=== PATIENT | female | born 1970 | race Two or more races ===

== ENCOUNTER 2018-11-29 01:57 | Emergency (ER) | payer OTHER, MEDICAID ==
[~2018-11-29] VITALS: Ht 172.7 cm; Wt 127.0 kg
[2018-11-29] MEDS ORDERED: SODIUM CHLORIDE 0.9% 1,000 ML IV ONE (04:16)
[2018-11-29] MEDS ORDERED: FAMOTIDINE 20MG/2ML VIAL IV STA (04:16)
[2018-11-29] MEDS ORDERED: ONDANSETRON HCL 4MG/2ML INJ IV STA (04:16)
[2018-11-29 05:02] LABS: BASOPHILS % 0.8 % (0.0-2.0); EOSINOPHILS % 1.4 % (0.0-5.0); HEMATOCRIT. 27.8 % (36.0-48.0); HEMOGLOBIN. 8.3 g/dL (12.0-16.0); LYMPHOCYTES % 17.3 % (20.0-50.0); MEAN CORPUSCULAR HEMOGLOBIN 19.7 pg (28.0-32.0); MEAN CORPUSCULAR VOLUME 65.8 fL (81.0-99.0); MEAN PLATELET VOLUME 7.4 fl (7.4-10.4); MONOCYTES % 6.3 % (2.0-8.0); NEUTROPHILS % 74.2 % (40.0-76.0); PLATELET 419 x1000/uL (130-400); RED BLOOD CELL COUNT 4.23 mill/uL (4.2-5.4); RED CELL DISTRIBUTION WIDTH 18.8 % (11.6-14.6)
[2018-11-29 05:18] LABS: CHLORIDE 105 mEq/L (98-107)
[2018-11-29 05:19] LABS: HCG SCREEN NEGATIVE
[2018-11-29 05:26] LABS: PLATELET ESTIMATE SLIGHTLY INCREASED
[2018-11-29 07:00] VITALS: BP 149/95
== END 2018-11-29 07:27 | disposition home or self-care (01) ==
LOC: ER 01:57
DX: R11.2 Nausea with vomiting, unspecified (principal); R10.84 Generalized abdominal pain; E11.9 Type 2 diabetes mellitus without complications; I10 Essential (primary) hypertension; R07.9 Chest pain, unspecified; Z98.51 Tubal ligation status
CPT/HCPCS: 36415; 74176; 80053; 83605; 83690; 84703; 85025; 93005; 96361; 96374; 96375; 99284; J2405; J3490; J7030

== ENCOUNTER 2020-06-22 00:39 | Emergency (ER) | payer OTHER, MEDICAID ==
[~2020-06-22] VITALS: Ht 172.7 cm; Wt 137.0 kg
[2020-06-22 00:41] VITALS: BP 155/85
[2020-06-22] MEDS ORDERED: DEXAMETHASONE 10 MG/ML VIAL IM ONE (01:15)
== END 2020-06-22 01:24 | disposition home or self-care (01) ==
LOC: ER 00:39
DX: T78.1XXA Other adverse food reactions, not elsewhere classified, initial encounter (principal); R22.0 Localized swelling, mass and lump, head; I10 Essential (primary) hypertension; E11.9 Type 2 diabetes mellitus without complications; Z91.013 Allergy to seafood
CPT/HCPCS: 96372; 99283; J1100